=== PATIENT | female | born 1950 | race Caucasian/White ===

== ENCOUNTER 2020-07-09 08:48 | Outpatient (CLI) | payer MEDICARE ==
--- NOTE | 2020-07-09 10:21 | MRI ---
MR angiogram of the head: 07/09/2020 COMPARISON: None HISTORY: Headaches, nystagmus, double vision TECHNIQUE: Routine noncontrast enhanced [id number] MR angiography of the brain obtained. FINDINGS: [id number] MR angiography demonstrates antegrade blood flow of patent distal bilateral vertebral arteries. The basilar artery and its branches are patent. No saccular aneurysm, high-grade stenosis, or vascular occlusion is seen involving the posterior circulation. Imaged portions of the extracranial ICA appear patent. There is a patent posterior communicating artery on the right. The M1 and A1 segment appears unremark able bilaterally. The MCA bifurcation and ICA bifurcation is unremarkable. Distal SERGEI and MCA branches appear intact. No saccular aneurysm, high-grade stenosis, or vascular occlusion is seen invo lving the anterior circulation. IMPRESSION: Grossly unremarkable MR angiography of the brain
--- NOTE | 2020-07-09 10:29 | MRI ---
MRI of thebrain with and without contrast: 07/09/2020 COMPARISON:None available HISTORY:Double vision, headaches, abnormal depth perception TECHNIQUE: Multiplanar multisequence MR imaging of thebrain with and without contrast Findings:The diffusion weighted imaging demonstrates no evidence for acute infarction. The bone marrow signal intensity appears grossly unremarkable on the T1-weighted imaging. There are multiple scattered subcentimeter foci of increased T2 and FLAIR signal within the white mat ter, evidence of small vessel disease. Mild cerebral volume loss noted. Thin section coronal fat saturated T2 weighted imaging through the orbits demonstrates no abnormal si gnal in the region of the extraocular muscles, the intraconal fat, or the optic nerve on either side. The visualized paranasal sinuses and mastoid air cells demonstrate no acute findings. The globes demonstrate a symmetric appearance with no focal area of signal abnormality. The postcontrast imaging demonstrates no abnormal enhancement within the brain parenchyma. Thin section coronal and axial fat saturated T1 weighted imaging through the orbits demonstrates no a bnormal enhancement on either side. IMPRESSION:Small vessel disease. No acute findings.
[2020-07-09] MEDS ORDERED: Magnevist 469MG/ML 20 ML VIAL ONE (14:09)
== END 2020-07-09 08:49 | disposition home or self-care (01) ==
LOC: BICMRI 08:48
PROVIDERS: ATTEND Family Medicine
DX: H53.2 Diplopia (principal); H55.00 Unspecified nystagmus; R51.9 Headache, unspecified; I67.89 Other cerebrovascular disease
CPT/HCPCS: 70544; 70553; 82565; A9579